=== PATIENT | female | born 1970 | race Caucasian/White ===

== ENCOUNTER 2022-07-02 14:35 | Emergency (ER) | payer OTHER ==
[~2022-07-02] VITALS: Ht 165.1 cm; Wt 77.1 kg
[2022-07-02] MEDS ORDERED: IBU800 MG PO (17:57)
== END 2022-07-02 18:08 | disposition home or self-care (01) ==
LOC: EDBD 14:35 → ER 14:35
DX: S43.401A Unspecified sprain of right shoulder joint, initial encounter (principal); X58.XXXA Exposure to other specified factors, initial encounter; Y93.89 Activity, other specified; Y92.89 Other specified places as the place of occurrence of the external cause; Y99.9 Unspecified external cause status